=== PATIENT | male | born 1970 | race Caucasian/White ===

== ENCOUNTER 2018-03-03 12:59 | Inpatient (IN) | payer SELFPAY ==
--- NOTE | 2018-03-03 13:36 | ER Document Report ---
ED Medical Screen (RME) - General Chief Complaint: Rectal Pain Stated Complaint: BUTTOCK PAIN Time Seen by Provider: 03/03/18 13:35 Notes: Patient is complaining of severe rectal pain since last night. He says that he was vomiting and dry heaving yesterday and also coughing real hard and does not know if he may have "blown out something". Since last evening, he had severe anorectal pain. Has not had any rectal bleeding. Does not note any swelling in that region. He did have surgery for hemorrhoids a few years ago. No history of fever. History of appendectomy. On no medications. TRAVEL OUTSIDE OF THE [place] IN LAST 30 DAYS: No - Related Data Allergies/Adverse Reactions: No Known Allergies Allergy (Verified 03/03/18 13:00) Past Medical History - Social History Frequency of alcohol use: Social Drug Abuse: None - Past Medical History Cardiac Medical History: Reports: Hx Hypertension Pulmonary Medical History: Denies: Hx Tuberculosis Neurological Medical History: Denies: Hx Seizures Renal/ Medical History: Denies: Hx Peritoneal Dialysis Traumatic Medical History: Reports: Hx Fractures - Ribs, Right hand, toe, Right arm Past Surgical History: Reports: Hx Appendectomy - at 19 years. Denies: Hx Pacemaker - Immunizations Hx Diphtheria, Pertussis, Tetanus Vaccination: Yes Physical Exam - Vital signs Vitals: Temp Pulse Resp BP Pulse Ox 97.9 F 101 H 20 159/108 H 100 03/03/18 13:09 03/03/18 13:09 03/03/18 13:03/03/18 13:09 03/03/18 13:09 Course - Vital Signs Vital signs: Temp Pulse Resp BP Pulse Ox 97.9 F 101 H 20 159/108 H 100 03/03/18 13:09 03/03/18 13:09 03/03/18 13:09 03/03/18 13:09 03/03/18 13:09 Doctor's Discharge - Discharge Referrals: LOCAL,NO [Primary Care Provider] - Follow up as needed
[2018-03-03] MEDS ORDERED: FENTANYL CITRATE INJ/PF 100 MCG/2 ML AMPUL IV ONE ×2 (14:24→18:43)
[2018-03-03] MEDS ORDERED: ONDANSETRON HCL INJ/PF 4 MG/2 ML SDV IV ONE (14:24)
[2018-03-03 15:47] LABS: APPEARANCE,URINE SLIGHTLY-CLOUDY; BILIRUBIN,URINE NEGATIVE (NEGATIVE); COLOR,URINE AMBER; GLUCOSE, URINE NEGATIVE (NEGATIVE); KETONES,URINE 80 mg/dL (NEGATIVE); LEUKOCYTE ESTERASE,URINE NEGATIVE (NEGATIVE); NITRITE,URINE NEGATIVE (NEGATIVE); PROTEIN,URINE 30 mg/dL (NEGATIVE); URINE SPECIFIC GRAVITY 1.023
[2018-03-03 15:48] LABS: HEMATOCRIT 42.4 % (37.9-51.0); HEMOGLOBIN 14.4 g/dL (13.5-17.0); MEAN CORPUSCULAR HEMOGLOBIN 30.4 pg (27.0-33.4); MEAN CORPUSCULAR HGB CONC 34.1 g/dL (32.0-36.0); MEAN CORPUSCULAR VOLUME 89 fl (80-97); PLATELET COUNT 310 10^3/uL (150-450); RED BLOOD COUNT 4.75 10^6/uL (4.35-5.55); RED CELL DISTRIBUTION WIDTH 15.5 % (11.5-14.0)
[2018-03-03 16:03] LABS: URINE AMPHETAMINES SCREEN NEGATIVE; URINE BARBITURATES SCREEN NEGATIVE; URINE BENZODIAZEPINES SCREEN NEGATIVE; URINE COCAINE SCREEN NEGATIVE; URINE MARIJUANA (THC) SCREEN UNCONFIRMED POSITIVE; URINE METHADONE SCREEN NEGATIVE; URINE PHENCYCLIDINE SCREEN NEGATIVE
[2018-03-03 16:05] LABS: ALANINE AMINOTRANSFERASE 38 U/L (21-72); ALKALINE PHOSPHATASE 108 U/L (38-126); ANION GAP 19 (5-19); ASPARTATE AMINO TRANSFERASE 30 U/L (17-59); BILIRUBIN,DIRECT 0.4 mg/dL (0.0-0.4); BLOOD UREA NITROGEN 8 mg/dL (7-20); CALCIUM 9.5 mg/dL (8.4-10.2); CARBON DIOXIDE 20 mmol/L (22-30); CHLORIDE 98 mmol/L (98-107); GLUCOSE 115 mg/dL (75-110); POTASSIUM 3.9 mmol/L (3.6-5.0); TOTAL PROTEIN 7.7 g/dL (6.3-8.2)
[2018-03-03 16:09] LABS: ABSOLUTE MONOCYTES # (MANUAL) 2.1 10^3/uL (0.1-1.4); ABSOLUTE NEUTROPHILS# (MANUAL) 15.8 10^3/uL (1.7-8.2); BAND NEUTROPHILS % (MANUAL) 2 % (3-5); BASOPHILS % (MANUAL) 1 % (0-2); EOSINOPHILS % (MANUAL) 0 % (0-6); LYMPHOCYTES % (MANUAL) 5 % (13-45); MONOCYTES % (MANUAL) 11 % (3-13); SEGMENTED NEUTROPHILS % (MAN) 81 % (42-78); TOTAL CELLS COUNTED 100
[2018-03-03 16:11] LABS: ANISOCYTOSIS SLIGHT; PLATELET COMMENT ADEQUATE
--- NOTE | 2018-03-03 17:17 | RADIOLOGY REPORT (SQ) ---
EXAM DESCRIPTION: CHEST 2 VIEWS COMPLETED DATE/TIME: 03/03/2018 5:06 pm REASON FOR STUDY: cough COMPARISON: 04/19/2012 EXAM PARAMETERS: NUMBER OF VIEWS: two views TECHNIQUE: Digital Frontal and Lateral radiographic views of the chest acquired. RADIATION DOSE: NA LIMITATIONS: none FINDINGS: LUNGS AND PLEURA: No opacities, masses or pneumothorax. No pleural effusion. MEDIASTINUM AND HILAR STRUCTURES: No masses or contour abnormalities. HEART AND VASCULAR STRUCTURES: Heart normal size. No evidence for failure. BONES: No acute findings. HARDWARE: None in the chest. OTHER: No other significant finding. IMPRESSION: NO ACUTE RADIOGRAPHIC FINDING IN THE CHEST. TECHNICAL DOCUMENTATION: JOB ID: [id number] [employer]- All Rights Reserved Reading location - IP/workstation name: [email or web address]
--- NOTE | 2018-03-03 17:27 | RADIOLOGY REPORT (SQ) ---
EXAM DESCRIPTION: CT ABD/PELVIS WITH IV ORAL COMPLETED DATE/TIME: 03/03/2018 5:14 pm REASON FOR STUDY: lower abd pain and rectal pain COMPARISON: None. TECHNIQUE: CT scan of the abdomen and pelvis performed using helical scanning technique with dynamic intravenous contrast injection. No oral contrast. Images reviewed with lung, soft tissue, and bone windows. Reconstructed coronal and sagittal MPR images reviewed. Delayed images for evaluation of the urinary system also acquired. All images stored on PACS. All CT scanners at this facility use dose modulation, iterative reconstruction, and/or weight based d osing when appropriate to reduce radiation dose to as low as reasonably achievable (ALARA). [facility]: Dose Right [facility]: CareDose [facility]: Dose Right [facility]: Teradose 4D [facility]: [employer] Systems CONTRAST TYPE AND DOSE: Not documented. RENAL FUNCTION: None required. The patient is less than 50 years old. RADIATION DOSE: 689 mGy cm LIMITATIONS: None. FINDINGS: LOWER CHEST: No significant findings. No nodules or infiltrates. LIVER: Normal size. No masses. No dilated ducts. Hepatic steatosis. SPLEEN: Normal size. No focal lesions. PANCREAS: No masses. No significant calcifications. No adjacent inflammation or peripancreatic fluid collections. Pancreatic duct not dilated. GALLBLADDER: No identified stones by CT criteria. No inflammatory changes to suggest cholecystitis. ADRENAL GLANDS: No significant masses or asymmetry. RIGHT KIDNEY AND URETER: No solid masses. No significant calcifications. No hydronephrosis or hyd roureter. LEFT KIDNEY AND URETER: No solid masses. No significant calcifications. No hydronephrosis or hydr oureter. AORTA AND VESSELS: No aneurysm. No dissection. Renal arteries, SMA, celiac without stenosis. RETROPERITONEUM: No retroperitoneal adenopathy, hemorrhage or masses. BOWEL AND PERITONEAL CAVITY: There is a large supralevator type perirectal abscess about the left asp ect of the rectum, internal to the anal sphincters and above the levator ani, measuring at least 6.0 x 3.8 x 5.5 cm (series 3, image 79, series 601, image 51). APPENDIX: Normal. PELVIS: No mass. No free fluid. Normal bladder. ABDOMINAL WALL: No masses. No hernias. BONES: No significant or acute findings. OTHER: No other significant finding. IMPRESSION: 1. There is a large supralevator type perirectal abscess about the left aspect of the r ectum, internal to the anal sphincters and above the levator ani, measuring at least 6.0 cm. 2. Hepatic steatosis. TECHNICAL DOCUMENTATION: JOB ID: [id number] Quality ID # [id number]: Final reports with documentation of one or more dose reduction techniques (e.g., Au tomated exposure control, adjustment of the mA and/or kV according to patient size, use of iterative reconstruction technique) 2010 [employer]- All Rights Reserved Reading location - IP/workstation name: [email or web address]
[2018-03-03] MEDS ORDERED: PIPERACILLIN/TAZOBACTAM 3.375 GM VIAL IV ONE ×2 (18:07→23:47)
[2018-03-03] MEDS ORDERED: VANCOMYCIN HCL INJ 1000 MG VIAL IV ONE (18:07)
[2018-03-03] MEDS ORDERED: RINGERS SOLUTION,LACTATED 1,000 ML IV PRN (18:38)
--- NOTE | 2018-03-03 18:43 | ER Document Report ---
ED GI Bleed / Rectal Pain - General Chief Complaint: Rectal Pain Stated Complaint: BUTTOCK PAIN Time Seen by Provider: 03/03/18 13:35 Mode of Arrival: Ambulatory Information source: Patient Notes: Patient is a 47-year-old male comes emergency room with 2-day onset of some rectal pain. Patient states that it started approximately 2 days ago with some discomfort he tried to have a bowel movement but the pain intensity was more than he can stand and he actually got severely nauseated and vomited. Patient' s been unable to sleep all night long since the patient has gotten more intense and he is hardly able to walk. Patient denies any use of sexual toys or any type of sexual intercourse rectally. He also denies any other medical problems. He does admit to smoking 1 pack of cigarettes a day. He has had only other surgeries were 2 internal hemorrhoids years ago. TRAVEL OUTSIDE OF THE [place] IN LAST 30 DAYS: No - HPI Onset: Other - 2 days Timing/Duration: Constant, Persistent, Worse Quality of pain: Pressure, Sharp, Throbbing Severity of symptoms: Severe Pain Level: 4 Vomiting X: 5 Diarrhea X: 0 Rectal foreign body: No Rectal pain with intercourse: No Exacerbated by: Sitting, Standing, Movement Relieved by: Denies Similar symptoms previously: No Recently seen / treated by doctor: No - Related Data Allergies/Adverse Reactions: No Known Allergies Allergy (Verified 03/03/18 13:00) Past Medical History - General Information source: Patient - Social History Smoking Status: Current Every Day Smoker Cigarette use (# per day): Yes - 1 pack a day Chew tobacco use (# tins/day): No Smoking Education Provided: Yes Frequency of alcohol use: Social Drug Abuse: None Lives with: Family Family History: Reviewed & Not Pertinent Patient has suicidal ideation: No Patient has homicidal ideation: No - Past Medical History Cardiac Medical History: Reports: Hx Hypertension Pulmonary Medical History: Denies: Hx Tuberculosis Neurological Medical History: Denies: Hx Seizures Renal/ Medical History: Denies: Hx Peritoneal Dialysis Traumatic Medical History: Reports: Hx Fractures - Ribs, Right hand, toe, Right arm Past Surgical History: Reports: Hx Appendectomy - at 19 years. Denies: Hx Pacemaker - Immunizations Hx Diphtheria, Pertussis, Tetanus Vaccination: Yes Review of Systems - Review of Systems Constitutional: No symptoms reported EENT: No symptoms reported Cardiovascular: No symptoms reported Respiratory: No symptoms reported Gastrointestinal: See HPI, Other - Rectal pain Genitourinary: No symptoms reported Male Genitourinary: No symptoms reported Musculoskeletal: No symptoms reported Skin: No symptoms reported Hematologic/Lymphatic: No symptoms reported Neurological/Psychological: No symptoms reported -: Yes All other systems reviewed and negative Physical Exam - Vital signs Vitals: Temp Pulse Resp BP Pulse Ox 97.9 F 101 H 20 159/108 H 100 03/03/18 13:09 03/03/18 13:09 03/03/18 13:09 03/03/18 13:09 03/03/18 13:09 Interpretation: Hypertensive - Notes Notes: PHYSICAL EXAMINATION: GENERAL: This is a well-nourished well-developed 47-year-old male who is in obvious pain and discomfort. Unable to find a position of comfort. HEAD: Atraumatic, normocephalic. EYES: Pupils equal round and reactive to light, extraocular movements intact, sclera anicteric, conjunctiva are normal. ENT: Nares patent, oropharynx clear without exudates. Moist mucous membranes. NECK: Normal range of motion, supple without lymphadenopathy LUNGS: Breath sounds clear to auscultation bilaterally and equal. No wheezes rales or rhonchi. HEART: Tachycardic rate and rhythm without murmurs ABDOMEN: Soft, nontender, nondistended abdomen. No guarding, no rebound. No masses appreciated. Rectal examination shows external hemorrhoid that is not inflamed. Digital rectal exam shows no tenderness at the sphincter on entering. There appears to be increasing discomfort and pain on the posterior sweep. Unable to feel any type of a defect or mass. But pain is definitely increased with digital rectal exam. Musculoskeletal: Normal range of motion, no pitting or edema. No cyanosis. NEUROLOGICAL: Normal speech, normal gait. Normal sensory, motor exams PSYCH: Normal mood, normal affect. SKIN: Warm, Dry, normal turgor, no rashes or lesions noted. Course - Re-evaluation Re-evalutation: 03/03/18 18:45 After doing my rectal exam is concerned patient had something going on but did not perceive it to be at this point. I it first anticipated to be a rectus measure but it was still more pain than I have seen with 1 of those in the past. I decide to go ahead and do a CT of the abdomen and pelvis with IV and oral contrast which was a plus because it comes back the patient has a large perirectal abscess. I contacted Dr. Bui and he will be down to see patient. This was approximately 1830. 03/03/18 19:24 Dr. Rodriguez came down and evaluated patient and it is going to be taking him to surgery tonight. So I am going to admit patient to Dr. lisa cervantes and we will go from here to OR. - Vital Signs Vital signs: Temp Pulse Resp BP Pulse Ox 97.9 F 115 H 20 161/111 H 100 03/03/18 13:09 03/03/18 18:37 03/03/18 18:37 03/03/18 18:37 03/03/18 18:37 - Laboratory Result Diagrams: 03/03/18 14:49 03/03/18 14:49 Laboratory results interpreted by me: 03/03/18 03/03/18 03/03/18 14:49 14:49 14:49 WBC 19.0 H RDW 15.5 H Seg Neuts % (Manual) 81 H Band Neutrophils % 2 L Lymphocytes % (Manual) 5 L Abs Neuts (Manual) 15.8 H Abs Monocytes (Manual) 2.1 H Carbon Dioxide 20 L Glucose 115 H Urine Protein 30 H Urine Ketones 80 H Urine Urobilinogen 2.0 H Discharge - Discharge Clinical Impression: Perirectal abscess Condition: Stable Disposition: ADMITTED OBSERVATION Admitting Provider: Surgicalist Unit Admitted: Surgical Floor Instructions: Abscess ([facility]) Referrals: LOCALMD,NO [NO LOCAL MD] - Follow up as needed
--- NOTE | 2018-03-03 19:20 | PDOC H&P ---
History of Present Illness Admission Date/PCP: 03/03/18 Patient complains of: perirectal pains History of Present Illness: FRANCO BERNSTEIN is a 47 year old male who c/o rectal pains last night which is getting worse today. Went to ED where a CT scan showed a left5 perirectal abscess. Denies fever or chills but felt warm. Past Medical History Cardiac Medical History: Reports: Hypertension Pulmonary Medical History: Denies: Tuberculosis Neurological Medical History: Denies: Seizures Past Surgical History Past Surgical History: Reports: Appendectomy - at 19 years, Other - hemorrhoidectomy Denies: Pacemaker Social History Lives with: Family Smoking Status: Current Every Day Smoker Hx Recreational Drug Use: No Hx Prescription Drug Abuse: No Family History Family History: Reviewed & Not Pertinent Parental Family History Reviewed: Yes Children Family History Reviewed: No Sibling(s) Family History Reviewed.: No Medication/Allergy Home Medications: Diazepam [Valium 5 Mg Tablet] 10 mg PO Q6H 04/20/12 Lisinopril [Prinivil 20 mg Tablet] 20 mg PO DAILY 04/20/12 Oxycodone HCl/Acetaminophen [Percocet 5-325 mg Tablet] 1 tab PO Q4HP PRN Allergies/Adverse Reactions: No Known Allergies Allergy (Verified 03/03/18 13:00) Review of Systems Constitutional: PRESENT: as per HPI Eyes: PRESENT: other - no visual/hearing changes Cardiovascular: PRESENT: other - no chest pains/cough Gastrointestinal: PRESENT: other - rectal pains Genitourinary: PRESENT: other - no dysuria Neurological: PRESENT: other - no seizures Hematologic/Lymphatic: PRESENT: other - no easy bruising Physical Exam Vital Signs: Temp Pulse Resp BP Pulse Ox 97.9 F 115 H 20 161/111 H 100 03/03/18 13:09 03/03/18 18:37 03/03/18 18:37 03/03/18 18:37 03/03/18 18:37 Intake & Output 03/02/18 03/03/18 03/04/18 06:59 06:59 06:59 Weight 75.4 kg General appearance: PRESENT: mild distress Head exam: PRESENT: atraumatic Eye exam: PRESENT: conjunctiva pink Mouth exam: PRESENT: moist Neck exam: PRESENT: full ROM Respiratory exam: PRESENT: clear to auscultation germain Cardiovascular exam: PRESENT: RRR Pulses: PRESENT: normal radial pulses Vascular exam: PRESENT: normal capillary refill GI/Abdominal exam: PRESENT: soft Rectal exam: PRESENT: other - tenderness left and posterior rectal area Extremities exam: PRESENT: full ROM Musculoskeletal exam: PRESENT: ambulatory Neurological exam: PRESENT: alert, oriented to person, oriented to place, oriented to time, oriented to situation Psychiatric exam: PRESENT: appropriate affect Skin exam: PRESENT: normal color, warm Results Laboratory Results: 03/03/18 14:49 03/03/18 14:49 03/03/18 03/03/18 03/03/18 14:20 14:49 14:49 WBC 19.0 H RBC 4.75 Hgb 14.4 Hct 42.4 MCV 89 MCH 30.4 MCHC 34.1 RDW 15.5 H Plt Count 310 Seg Neutrophils % Not Reportable Lymphocytes % Not Reportable Monocytes % Not Reportable Eosinophils % Not Reportable Basophils % Not Reportable Absolute Neutrophils Not Reportable Absolute Lymphocytes Not Reportable Absolute Monocytes Not Reportable Absolute Eosinophils Not Reportable Absolute Basophils Not Reportable Sodium 137.0 Potassium 3.9 Chloride 98 Carbon Dioxide 20 L Anion Gap 19 BUN 8 Creatinine 0.59 Est GFR ( Amer) > 60 Est GFR (Non-Af Amer) > 60 Glucose 115 H Lactic Acid Calcium 9.5 Total Bilirubin 1.0 AST 30 ALT 38 Alkaline Phosphatase 108 Total Protein 7.7 Albumin 4.0 Urine Color Urine Appearance Urine pH Ur Specific [place] Urine Protein Urine Glucose (UA) Urine Ketones Urine Blood Urine Nitrite Ur Leukocyte Esterase Urine WBC (Auto) Urine RBC (Auto) Stool Occult Blood NEGATIVE 03/03/18 03/03/18 14:49 15:38 WBC RBC Hgb Hct MCV MCH MCHC RDW Plt Count Seg Neutrophils % Lymphocytes % Monocytes % Eosinophils % Basophils % Absolute Neutrophils Absolute Lymphocytes Absolute Monocytes Absolute Eosinophils Absolute Basophils Sodium Potassium Chloride Carbon Dioxide Anion Gap BUN Creatinine Est GFR ( Amer) Est GFR (Non-Af Amer) Glucose Lactic Acid 1.2 Calcium Total Bilirubin AST ALT Alkaline Phosphatase Total Protein Albumin Urine Color MIS[place]H Urine Appearance SLIGHTLY-CLOUDY Urine pH 5.0 Ur Specific [place] 1.023 Urine Protein 30 H Urine Glucose (UA) NEGATIVE Urine Ketones 80 H Urine Blood NEGATIVE Urine Nitrite NEGATIVE Ur Leukocyte Esterase NEGATIVE Urine WBC (Auto) 2 Urine RBC (Auto) 1 Stool Occult Blood Impressions: Abdomen/Pelvis CT 03/03/18 00:00 IMPRESSION: 1. There is a large supralevator type perirectal abscess about the left aspect of the rectum, internal to the anal sphincters and above the levator ani, measuring at least 6.0 cm. 2. Hepatic steatosis. Chest X-Ray 03/03/18 16:20 IMPRESSION: NO ACUTE RADIOGRAPHIC FINDING IN THE CHEST. Assessment & Plan - Diagnosis (1) Karli-rectal abscess Is this a current diagnosis for this admission?: Yes - Time Time Spent: 30 to 50 Minutes - Inpatient Certification Medical Necessity: Need For IV Fluids, Need for Pain Control, Need for IV Antibiotics, Need for Surgery - Plan Summary Plan Summary: IV antibiotics Hydrate For I&D perirectal abscess
[2018-03-03] MEDS ORDERED: LIDOCAINE 0.5% INJ-PF (5 MG/ML) 50 ML SDV ONE (20:04)
[2018-03-03] MEDS ORDERED: ONDANSETRON HCL INJ/PF 4 MG/2 ML SDV ONE (20:32)
[2018-03-03] MEDS ORDERED: HYDROMORPHONE HCL INJ/PF 2 MG/ML AMPULE ONE ×2 (20:32→21:10)
[2018-03-03] MEDS ORDERED: MIDAZOLAM 2 MG/2 ML INJ ONE (20:32)
[2018-03-03] MEDS ORDERED: PROPOFOL INJ 200 MG/20 ML VIAL IV ONE (20:32)
[2018-03-03] MEDS ORDERED: LIDOCAINE 2% INJ (20 MG/ML) 20 ML MDV ONE (20:33)
[2018-03-03] MEDS ORDERED: FENTANYL CITRATE INJ/PF 100 MCG/2 ML AMPUL IV PRN ×3 (21:00)
[2018-03-03] MEDS ORDERED: MEPERIDINE HCL/PF INJ 25 MG/1 ML DISP.SYRIN IV PRN (21:00)
[2018-03-03] MEDS ORDERED: PROMETHAZINE HCL INJ 25 MG/1 ML VIAL IV PRN (21:00)
[2018-03-03] MEDS ORDERED: DIPHENHYDRAMINE HCL 50 MG/ML VIAL IV PRN (21:00)
[2018-03-03] MEDS ORDERED: LABETALOL HCL INJ 20 MG/4 ML DISP.SYRIN IV ONE (21:38)
[2018-03-03] MEDS ORDERED: PIPERACILLIN/TAZOBACTAM 3.375 GM VIAL IV PRN (22:17)
[2018-03-03] MEDS ORDERED: ONDANSETRON HCL INJ/PF 4 MG/2 ML SDV IV PRN (22:18)
[2018-03-04] MEDS: PIPERACILLIN SODIUM/TAZOBACTAM 3.375 GM in NORMAL SALINE 100 ML IV SCH ×5 (00:17→23:45)
[2018-03-04] MEDS: OXYCODONE-ACETAMINOPHEN 5-325 MG TABLET PO PRN ×3 (01:37→12:27)
[2018-03-04] MEDS ORDERED: CALCIUM GLUCONATE 1000 MG/10 ML INJ IV ONE (02:19)
[2018-03-04] MEDS: MORPHINE SULFATE 10 MG/ML INJ IV PRN ×4 (04:52→22:27)
--- NOTE | 2018-03-04 08:45 | RADIOLOGY REPORT (SQ) ---
EXAM DESCRIPTION: U/S SCROTUM W/DOPPLER COMPLETED DATE/TIME: 03/04/2018 6:17 am REASON FOR STUDY: SWOLLEN SCROTUM COMPARISON: None. TECHNIQUE: Static and realtime woodard scale imaging of the scrotum and testes. Selected color Doppler and spectral images recorded to document blood flow. LIMITATIONS: None. FINDINGS: RIGHT: TESTICLE: Normal size. Normal echotexture. Normal blood flow. No mass. EPIDIDYMIS: Normal. HYDROCELE OR VARICOCELE: No. HERNIA OR EXTRA-TESTICULAR MASS: No. OTHER: Scrotal wall thickening measuring up to 8 mm. LEFT: TESTICLE: Normal size. Normal echotexture. Normal blood flow. No mass. EPIDIDYMIS: Normal. HYDROCELE OR VARICOCELE: No. HERNIA OR EXTRA-TESTICULAR MASS: No. OTHER: Scrotal wall thickening measuring up to 8 mm. IMPRESSION: There is diffuse bilateral scrotal wall thickening of uncertain significance. No ultras ound abnormality of the bilateral testicles or epididymides. TECHNICAL DOCUMENTATION: JOB ID: [id number]- All Rights Reserved Reading location - IP/workstation name: [email or web address]
[2018-03-04] MEDS: ACETAMINOPHEN 325 MG TABLET PO PRN ×2 (09:54→19:56)
[2018-03-04 10:06] LABS: ABSOLUTE LYMPHOCYTES (AUTO) 1.1 10^3/uL (0.5-4.7); ABSOLUTE MONOCYTES (AUTO) 1.2 10^3/uL (0.1-1.4); ABSOLUTE NEUT (AUTO) 10.9 10^3/uL (1.7-8.2); BASOPHILS % (AUTO) 0.2 % (0-2); HEMATOCRIT 36.6 % (37.9-51.0); HEMOGLOBIN 12.5 g/dL (13.5-17.0); MEAN CORPUSCULAR HEMOGLOBIN 30.3 pg (27.0-33.4); MEAN CORPUSCULAR VOLUME 89 fl (80-97); MONOCYTES % (AUTO) 8.9 % (3-13); PLATELET COUNT 264 10^3/uL (150-450); RED BLOOD COUNT 4.11 10^6/uL (4.35-5.55); RED CELL DISTRIBUTION WIDTH 15.7 % (11.5-14.0); SEGMENTED NEUTROPHILS % (AUTO) 82.9 % (42-78); TOTAL CELLS COUNTED % (AUTO) 100 %; WHITE BLOOD COUNT 13.1 10^3/uL (4.0-10.5)
--- NOTE | 2018-03-04 12:32 | OPERATIVE REPORT E ---
Operative Report NAME: FRANCO BERNSTEIN : 1970 AGE: 47Y DATE OF SURGERY: 03/03/2018 ROOM: 423 PREOPERATIVE DIAGNOSIS: SUPRALEVATOR PERIRECTAL ABSCESS, MOSTLY ON THE LEFT SIDE. POSTOPERATIVE DIAGNOSIS: SUPRALEVATOR PERIRECTAL ABSCESS, MOSTLY ON THE LEFT SIDE. OPERATION: Incision and drainage of left supralevator perirectal abscess and placement of Malecot 16-Turkish catheter through the posterior rectal area. SURGEON: ERIC QUIROS M.D. ANESTHESIA: General. INDICATION: This is a 47-year-old male complaining of perirectal pains for the past 24 hours. He had a CAT scan of the abdomen and pelvis in the ED which showed a supralevator abscess about 6 cm in diameter. Patient has bogginess of the left perirectal area on the rectal exam that is markedly tender. PROCEDURE: After adequate general anesthesia, the patient is placed in lithotomy position and the perirectal and perineal areas were then prepped and draped in the usual sterile fashion. Appropriate time-out was then called. Next, a rectal exam was performed. It appears there is some bogginess along the left side. No obvious drainage noted other than a small amount of light purulent material. Next, an incision was made at the posterior rectal area just below the dentate line. Incision was extended proximally with the use of hemostat through the intersphincteric muscle and eventually a gush of light purulent and dark fluid extruded out. Cultures were then obtained. Next, a 16-Turkish Malecot catheter was then passed through the tunnel that was created into the cavity site. The catheter was then irrigated with saline solution and the was cleared of purulent material that extruded out. Also there appears to be flattening of the bogginess in the rectal area on palpation. The Malecot catheter was then anchored to the skin with 3-0 nylon. The stem connected to a suction bulb. Sterile dressings placed around the catheter insertion site. Patient tolerated procedure well. Needle, instrument, sponge count are all correct. Patient then brought to the Recovery Room and extubated in satisfactory condition. ESTIMATED BLOOD LOSS: About 10 mL. DICTATING PHYSICIAN: ERIC QUIROS M.D. [id number] PHY#: [id number] ID: [id number] JOB#: [id number] ACCT: [id number] cc:ERIC QUIROS M.D. >
--- NOTE | 2018-03-04 20:34 | RADIOLOGY REPORT (SQ) ---
EXAM DESCRIPTION: CT ABD/PELVIS WITH IV ORAL COMPLETED DATE/TIME: 03/04/2018 8:23 pm REASON FOR STUDY: Follow up on Abcess seen on Scan 03/03/18 COMPARISON: 12 TECHNIQUE: CT scan of the abdomen and pelvis performed using helical scanning technique with dynamic intravenous contrast injection. With oral contrast. Images reviewed with lung, soft tissue, and bon e windows. Reconstructed coronal and sagittal MPR images reviewed. Delayed images for evaluation of t he urinary system also acquired. All images stored on PACS. All CT scanners at this facility use dose modulation, iterative reconstruction, and/or weight based d osing when appropriate to reduce radiation dose to as low as reasonably achievable (ALARA). [facility]: Dose Right [facility]: CareDose [facility]: Dose Right [facility]: Teradose 4D [facility]: [employer] CONTRAST TYPE AND DOSE: Not recorded not recorded RENAL FUNCTION: GFR > 60. RADIATION DOSE: CT Rad equipment meets quality standard of care and radiation dose reduction techniq ues were employed. CTDIvol: 6.1 - 8.6 mGy. DLP: 981 mGy-cm.. LIMITATIONS: None. FINDINGS: LOWER CHEST: Minimal atelectasis at the lung bases. LIVER: Hepatic steatosis. No masses. SPLEEN: Normal size. No focal lesions. PANCREAS: No masses. No significant calcifications. No adjacent inflammation or peripancreatic fluid collections. Pancreatic duct not dilated. GALLBLADDER: No identified stones by CT criteria. No inflammatory changes to suggest cholecystitis. ADRENAL GLANDS: No significant masses or asymmetry. RIGHT KIDNEY AND URETER: No solid masses. No significant calcifications. No hydronephrosis or hyd roureter. LEFT KIDNEY AND URETER: No solid masses. No significant calcifications. No hydronephrosis or hydr oureter. AORTA AND VESSELS: No aneurysm. No dissection. Renal arteries, SMA, celiac without stenosis. RETROPERITONEUM: No retroperitoneal adenopathy, hemorrhage or masses. BOWEL AND PERITONEAL CAVITY: Previously noted abscess is essentially resolved. No residual fluid or air present. No soft tissue asymmetry. Drainage tract identified. APPENDIX: Surgically absent. PELVIS: No mass. No free fluid. Normal bladder. ABDOMINAL WALL: No masses. No hernias. BONES: No significant or acute findings. OTHER: No other significant finding. IMPRESSION: Previously noted pelvic abscess is essentially resolved. No residual fluid, gas, or sof t tissue asymmetry. Hepatic steatosis. TECHNICAL DOCUMENTATION: JOB ID: [id number] Quality ID # [id number]: Final reports with documentation of one or more dose reduction techniques (e.g., Au tomated exposure control, adjustment of the mA and/or kV according to patient size, use of iterative reconstruction technique) 2010 [employer]- All Rights Reserved Reading location - IP/workstation name: [email or web address]
--- NOTE | 2018-03-04 20:57 | PDOC PROGRESS REPORT ---
Subjective Progress Note for:: 03/04/18 Subjective:: pains at the pubic area with scrotal edema Reason For Visit: PERIRECTAL ABSCESS Physical Exam Vital Signs: Temp Pulse Resp BP Pulse Ox 98.7 F 108 H 16 123/80 89 L 03/04/18 19:49 03/04/18 19:49 03/04/18 19:49 03/04/18 19:49 03/04/18 19:49 Intake & Output 03/03/18 03/04/18 03/05/18 06:59 06:59 06:59 Intake Total 3240 1220 Output Total 1470 10 Balance 1770 1210 Weight 75.4 kg Exam: Drain about 10 ccs brownish fluid Follow up Ct scan showed abscess resolved with no other findings Has some reddish discoloration of scrotum and pubis with mild tenderness Results Laboratory Results: 03/04/18 09:23 03/04/18 09:23 WBC 13.1 H RBC 4.11 L Hgb 12.5 L Hct 36.6 L MCV 89 MCH 30.3 MCHC 34.0 RDW 15.7 H Plt Count 264 Seg Neutrophils % 82.9 H Lymphocytes % 8.0 L Monocytes % 8.9 Eosinophils % 0.0 Basophils % 0.2 Absolute Neutrophils 10.9 H Absolute Lymphocytes 1.1 Absolute Monocytes 1.2 Absolute Eosinophils 0.0 Absolute Basophils 0.0 Impressions: Chest X-Ray 03/03/18 16:20 IMPRESSION: NO ACUTE RADIOGRAPHIC FINDING IN THE CHEST. Scrotum Ultrasound 03/04/18 00:00 IMPRESSION: There is diffuse bilateral scrotal wall thickening of uncertain significance. No ultrasound abnormality of the bilateral testicles or epididymides. Abdomen/Pelvis CT 03/04/18 14:24 IMPRESSION: Previously noted pelvic abscess is essentially resolved. No residual fluid, gas, or soft tissue asymmetry. Hepatic steatosis. Assessment & Plan - Diagnosis (1) Karli-rectal abscess Is this a current diagnosis for this admission?: Yes (2) cellulitis pubic area Is this a current diagnosis for this admission?: Yes - Time Time Spent with patient: 15-24 minutes - Inpatient Certification Medical Necessity: Need for IV Antibiotics - Plan Summary Plan Summary: Continue IV antibiotics Monitor CBC Drain pulled out.
[2018-03-04] MEDS ORDERED: METRONIDAZOLE 500 MG/NS RTU 500 MG in CONTAINER,EMPTY 1 EACH IV SCH (22:00)
[2018-03-04] MEDS: METRONIDAZOLE 500 MG/NS RTU 500 MG/100 ML RTUPB IV SCH (22:28)
[2018-03-05] MEDS: OXYCODONE-ACETAMINOPHEN 5-325 MG TABLET PO PRN ×5 (01:01→23:37)
[2018-03-05] MEDS: METRONIDAZOLE 500 MG/NS RTU 500 MG/100 ML RTUPB IV SCH ×3 (05:06→21:35)
[2018-03-05] MEDS: MORPHINE SULFATE 10 MG/ML INJ IV PRN (05:06)
[2018-03-05] MEDS: PIPERACILLIN SODIUM/TAZOBACTAM 3.375 GM in NORMAL SALINE 100 ML IV SCH ×4 (05:07→23:37)
[2018-03-05 05:16] LABS: HEMATOCRIT 33.9 % (37.9-51.0); HEMOGLOBIN 11.4 g/dL (13.5-17.0); MEAN CORPUSCULAR HEMOGLOBIN 30.4 pg (27.0-33.4); MEAN CORPUSCULAR HGB CONC 33.8 g/dL (32.0-36.0); MEAN CORPUSCULAR VOLUME 90 fl (80-97); PLATELET COUNT 224 10^3/uL (150-450); RED BLOOD COUNT 3.77 10^6/uL (4.35-5.55); RED CELL DISTRIBUTION WIDTH 15.3 % (11.5-14.0); WHITE BLOOD COUNT 11.2 10^3/uL (4.0-10.5)
[2018-03-05 05:52] LABS: ABSOLUTE LYMPHOCYTES# (MANUAL) 0.9 10^3/uL (0.5-4.7); ABSOLUTE MONOCYTES # (MANUAL) 0.1 10^3/uL (0.1-1.4); BASOPHILS % (MANUAL) 1 % (0-2); EOSINOPHILS % (MANUAL) 1 % (0-6); LYMPHOCYTES % (MANUAL) 8 % (13-45); MONOCYTES % (MANUAL) 1 % (3-13); SEGMENTED NEUTROPHILS % (MAN) 89 % (42-78); TOTAL CELLS COUNTED 100
[2018-03-05 05:57] LABS: ANISOCYTOSIS 1+; BURR CELLS SLIGHT; HELMET CELLS 1+; OVALOCYTES 1+; POIKILOCYTOSIS 1+; TOXIC GRANULATION SLIGHT; TOXIC VACUOLATION PRESENT
[2018-03-05 05:58] LABS: PLATELET COMMENT ADEQUATE
--- NOTE | 2018-03-05 09:33 | PDOC PROGRESS REPORT ---
Subjective Progress Note for:: 03/05/18 Subjective:: States he feels better Reason For Visit: PERIRECTAL ABSCESS Physical Exam Vital Signs: Temp Pulse Resp BP Pulse Ox 98.7 F 74 16 115/66 95 03/05/18 07:21 03/05/18 07:21 03/05/18 07:21 03/05/18 07:21 03/05/18 07:21 Intake & Output 03/04/18 03/05/18 03/06/18 06:59 06:59 06:59 Intake Total 3240 2170 200 Output Total 1470 10 Balance 1770 2160 200 Weight 75.4 kg 74.8 kg General appearance: PRESENT: no acute distress Gentrourinary exam: PRESENT: other - Patient examined supine and left lateral decubitus positions. There is persisting erythema of the mid to lower groins extending to the base of the penis as well as the scrotum bilaterally. There is injection and edema; all of these manifestations are less according to the patient. In the left lateral decubitus position, the drain tube exit site has some seropurulent discharge. There is no exquisite perianal tenderness. Results Laboratory Results: 03/05/18 03:59 03/04/18 03/05/18 09:23 03:59 WBC 13.1 H 11.2 H RBC 4.11 L 3.77 L Hgb 12.5 L 11.4 L Hct 36.6 L 33.9 L MCV 89 90 MCH 30.3 30.4 MCHC 34.0 33.8 RDW 15.7 H 15.3 H Plt Count 264 224 Seg Neutrophils % 82.9 H Not Reportable Lymphocytes % 8.0 L Not Reportable Monocytes % 8.9 Not Reportable Eosinophils % 0.0 Not Reportable Basophils % 0.2 Not Reportable Absolute Neutrophils 10.9 H Not Reportable Absolute Lymphocytes 1.1 Not Reportable Absolute Monocytes 1.2 Not Reportable Absolute Eosinophils 0.0 Not Reportable Absolute Basophils 0.0 Not Reportable Impressions: Chest X-Ray 03/03/18 16:20 IMPRESSION: NO ACUTE RADIOGRAPHIC FINDING IN THE CHEST. Scrotum Ultrasound 03/04/18 00:00 IMPRESSION: There is diffuse bilateral scrotal wall thickening of uncertain significance. No ultrasound abnormality of the bilateral testicles or epididymides. Abdomen/Pelvis CT 03/04/18 14:24 IMPRESSION: Previously noted pelvic abscess is essentially resolved. No residual fluid, gas, or soft tissue asymmetry. Hepatic steatosis. Assessment & Plan - Diagnosis (1) Karli-rectal abscess Is this a current diagnosis for this admission?: Yes Plan: Impression: Patient is 2 days status post a perianal abscess drainage, with [place] drain removal; improved but persisting perineal and edema. Recommendations: 1. Continue intravenous antibiotics 2. Start Colace 3. Anticipate discharge in the next 24-48 hours if continues to improve
[2018-03-05] MEDS: NICOTINE 21 MG/24 HR PATCH.TD24 TD PRN (19:11)
[2018-03-06] MEDS: OXYCODONE-ACETAMINOPHEN 5-325 MG TABLET PO PRN ×3 (03:42→21:10)
[2018-03-06] MEDS: PIPERACILLIN SODIUM/TAZOBACTAM 3.375 GM in NORMAL SALINE 100 ML IV SCH ×3 (05:10→17:34)
[2018-03-06] MEDS: METRONIDAZOLE 500 MG/NS RTU 500 MG/100 ML RTUPB IV SCH ×3 (05:56→21:10)
[2018-03-06] MEDS: MORPHINE SULFATE 10 MG/ML INJ IV PRN ×2 (09:06→12:45)
--- NOTE | 2018-03-06 10:40 | PDOC PROGRESS REPORT ---
Subjective Progress Note for:: 03/06/18 Subjective:: less pains Reason For Visit: PERIRECTAL ABSCESS Physical Exam Vital Signs: Temp Pulse Resp BP Pulse Ox 99.6 F 62 16 135/92 H 100 03/06/18 07:51 03/06/18 07:51 03/06/18 07:51 03/06/18 07:51 03/06/18 07:51 Exam: inflammation pubic and scrotal areas are improving. Results Impressions: Chest X-Ray 03/03/18 16:20 IMPRESSION: NO ACUTE RADIOGRAPHIC FINDING IN THE CHEST. Scrotum Ultrasound 03/04/18 00:00 IMPRESSION: There is diffuse bilateral scrotal wall thickening of uncertain significance. No ultrasound abnormality of the bilateral testicles or epididymides. Abdomen/Pelvis CT 03/04/18 14:24 IMPRESSION: Previously noted pelvic abscess is essentially resolved. No residual fluid, gas, or soft tissue asymmetry. Hepatic steatosis. Assessment & Plan - Diagnosis (1) Karli-rectal abscess Is this a current diagnosis for this admission?: Yes (2) cellulitis pubic area Is this a current diagnosis for this admission?: Yes - Time Time Spent with patient: 15-24 minutes - Inpatient Certification Medical Necessity: Need for IV Antibiotics - Plan Summary Plan Summary: Will need at least 24 hrs of IV antibiotics Recheck WBC in am
[2018-03-06] MEDS: NICOTINE 21 MG/24 HR PATCH.TD24 TD PRN (21:10)
[2018-03-07] MEDS: PIPERACILLIN SODIUM/TAZOBACTAM 3.375 GM in NORMAL SALINE 100 ML IV SCH ×2 (00:12→06:08)
[2018-03-07] MEDS: OXYCODONE-ACETAMINOPHEN 5-325 MG TABLET PO PRN (04:58)
[2018-03-07] MEDS: METRONIDAZOLE 500 MG/NS RTU 500 MG/100 ML RTUPB IV SCH (05:01)
[2018-03-07 05:04] LABS: HEMATOCRIT 34.1 % (37.9-51.0); HEMOGLOBIN 11.7 g/dL (13.5-17.0); MEAN CORPUSCULAR HEMOGLOBIN 30.5 pg (27.0-33.4); MEAN CORPUSCULAR HGB CONC 34.4 g/dL (32.0-36.0); MEAN CORPUSCULAR VOLUME 89 fl (80-97); PLATELET COUNT 262 10^3/uL (150-450); RED BLOOD COUNT 3.85 10^6/uL (4.35-5.55); RED CELL DISTRIBUTION WIDTH 15.7 % (11.5-14.0); WHITE BLOOD COUNT 10.2 10^3/uL (4.0-10.5)
[2018-03-07 05:51] LABS: ABSOLUTE LYMPHOCYTES# (MANUAL) 2.2 10^3/uL (0.5-4.7); ABSOLUTE MONOCYTES # (MANUAL) 1.7 10^3/uL (0.1-1.4); ABSOLUTE NEUTROPHILS# (MANUAL) 6.1 10^3/uL (1.7-8.2); BAND NEUTROPHILS % (MANUAL) 1 % (3-5); BASOPHILS % (MANUAL) 0 % (0-2); EOSINOPHILS % (MANUAL) 1 % (0-6); LYMPHOCYTES % (MANUAL) 22 % (13-45); MONOCYTES % (MANUAL) 17 % (3-13); SEGMENTED NEUTROPHILS % (MAN) 59 % (42-78); TOTAL CELLS COUNTED 100
[2018-03-07 05:52] LABS: ANISOCYTOSIS 1+; PLATELET COMMENT ADEQUATE; TOXIC VACUOLATION PRESENT
[2018-03-07 08:34] VITALS: BP 145/91
== END 2018-03-07 08:58 | disposition home or self-care (01) | DRG 330 ==
LOC: ER 12:59 → EH 19:35 → 4W 22:59 → OBSVTOIN 03-06 09:48
PROVIDERS: ADMIT Surgery; ATTEND Surgery
PROC: 0D9P00Z Drainage of Rectum with Drainage Device, Open Approach (ICD-10-PCS; principal; 2018-03-03 20:30)
DX: K61.1 Rectal abscess (principal); L03.314 Cellulitis of groin; I10 Essential (primary) hypertension; Z90.49 Acquired absence of other specified parts of digestive tract; F17.210 Nicotine dependence, cigarettes, uncomplicated
CPT/HCPCS: 36415; 71046; 74177; 76870; 80053; 80307; 81001; 82272; 83605; 85025; 87040; 87070; 87075; 87077; 87186; 87205; 902; 93976; C1729; G0378; J1170; J2250; J2270; J2405; J2543; J2704; J3010; J3370; J3490; J7120